=== PATIENT | female | born 1955 | race Caucasian/White ===

== ENCOUNTER 2024-09-10 12:49 | Outpatient (AMB) | payer MEDICARE, BC, SELFPAY ==
--- NOTE | 2024-09-10 12:52 | HO.SPINEOV ---
Vital Signs 09/10/24 12:57 Height 5 ft 3.5 in Weight 238 lb BMI 41.5 Intake Visit Reasons: SI joint right side Intake Note: Ms. Chappell is here today c/o pain in the right SI Joint. Marketing Support Specialist Required: No Allergies leflunomide Allergy (Mild, Verified 09/10/24 12:59) Dizziness methotrexate Allergy (Mild, Verified 09/10/24 12:59) Dizziness Sulfa (Sulfonamide Antibiotics) Allergy (Mild, Verified 09/10/24 12:59) Rash Physical Exam Vital Signs: BMI result Body Mass Index 41.5 Assessment & Plan Assessment & Plan (1) Sacroiliitis, not elsewhere classified: Code(s): M46.1 - Sacroiliitis, not elsewhere classified Category: Medical Plan Dear colleague Thank you for referring Loren Chappell to the office today with a chief complaint of right sacroiliitis. HPI: This 69-year-old female has a 2 year history of pain in the area of the right SI joint. The pain gets worse with sitting or laying on her side in bed. Walking is also disturbed. She has difficulty getting in and out of a car. She was recently started on Celebrex which gives her relief. Physical therapy was not successful. Pre SI joint injections were performed with a 2 giving temporary relief of more than 80%. She denies radicular symptoms. No weakness or numbness. PMH: Hypothyroidism, total knee replacement, hysterectomy, cataracts, carpal tunnel syndrome, cholecystectomy Medications: Levothyroxine, omeprazole, furosemide, pregabalin, minocycline, Celebrex Allergies: Sulfa drugs, methotrexate, leflunomide Social history: . Nonsmoker Physical Exam: Pleasant male. SI joint provocative tests are positive on the right side. No motor or sensory deficits. Radiological Studies: MRI of the lumbar spine done at [place] shows mild lumbar degenerative changes. Impression/Plan: This 69-year-old female suffering from right SI joint pain. Conservative management is failing, the Celebrex is giving currently relief. We discussed a right SI joint fusion. I described the procedure and expected postoperative course. She would like to think about this option. Thank you for allowing me to participate in your patients care. total time spent was 50 minutes in counseling ,coordination of plan, personal review of imaging, surgical decision making and subsequent plan Kalin Vidal MD, PhD [facility] Trained Neurosurgeon Director, [facility] Coding Level of Care Code New Pt Level 4 (42772) Diagnoses Sacroiliitis, not elsewhere classified M46.1
[2024-09-10 12:57] VITALS: BMI 41.5
== END 2024-09-10 13:22 | disposition home or self-care (01) ==
PROVIDERS: PCP Family Medicine; Visit Provider Neurological Surgery
DX: M46.1 Sacroiliitis, not elsewhere classified (principal)
CPT/HCPCS: 99204

== ENCOUNTER → 2024-09-10 12:49 | Outpatient (BNVA) | payer MEDICARE, BC, SELFPAY | PROVIDERS: PCP Family Medicine; Visit Provider Neurological Surgery | DX: M46.1 Sacroiliitis, not elsewhere classified (principal) | CPT/HCPCS: 99202 ==